=== PATIENT | female | born 1990 | race African-American/Black ===

== ENCOUNTER 2016-09-10 17:25 | Emergency (ER) | payer MEDICAID ==
[~2016-09-10] VITALS: Ht 157.5 cm; Wt 76.4 kg
[~2016-09-10 17:25] MED LIST: HYDR-3533 PO; ZOFR4TAB PO
[2016-09-10 17:27] VITALS: BP 157/85; PULSE 99; RESP 14; TEMP 98.1; O2SAT 100
[2016-09-10 18:45] LABS: AUTOMATED NEUTROPHIL # 5.3 TH/MM3 (1.8-7.7); BASOPHIL % 0.4 % (0.0-2.0); EOSINOPHIL # 0.1 TH/MM3 (0-0.4); EOSINOPHIL % 0.7 % (0.0-4.0); HEMATOCRIT 34.3 % (35.0-46.0); LYMPH % 32.9 % (9.0-44.0); MEAN CELL VOLUME 72.2 FL (80.0-100.0); MEAN CORPUSCULAR HGB CONC 30.4 % (32.0-36.0); MONO % 6.4 % (0.0-8.0); NEUT % 59.6 % (16.0-70.0); PLATELET COUNT 332 TH/MM3 (150-450); RED BLOOD COUNT 4.75 MIL/MM3 (4.00-5.30); RED CELL DISTRIBUTION WIDTH 21.4 % (11.6-17.2)
[2016-09-10 18:49] LABS: HEMO FLAGS AUTO DIFF
[2016-09-10 18:51] LABS: BLOOD, URINE NEG (NEG); COMMENT (UR) CULT NOT INDICATED; CULTURE IF INDICATED CULT NOT INDICATED; GLUCOSE,URINE NEG (NEG); KETONE, URINE NEG (NEG); MUCUS URINE FEW /lpf (OCC); NITRITE,URINE NEG (NEG); PH, URINE 6.5 (5.0-8.5); SQUAMOUS EPITHELIAL CELL URINE 7 /hpf (0-5); URINE COLOR YELLOW (YELLW/STRAW)
[2016-09-10 19:04] LABS: ANION GAP 6 MEQ/L (5-15); AST (GOT) 17 U/L (15-37); BICARBONATE 27.9 MEQ/L (21.0-32.0); BLOOD UREA NITROGEN 6 MG/DL (7-18); CHLORIDE 102 MEQ/L (98-107); GLOMERULAR FILTRATION RATE 119 ML/MIN (>89); POTASSIUM 3.8 MEQ/L (3.5-5.1); SODIUM (NA) 136 MEQ/L (136-145)
[2016-09-10 19:08] LABS: ALKALINE PHOSPHATASE 81 U/L (45-117); ALT (GPT) 20 U/L (10-53); TOTAL BILIRUBIN ADULT 0.2 MG/DL (0.2-1.0)
[2016-09-10 20:51] LABS: PLATELET ESTIMATE SMEAR NORMAL (NORMAL); PLATELET MORPHOLOGY NORMAL (NORMAL); SCAN/DIFF AUTO DIFF CONFIRMED
== END 2016-09-10 21:06 | disposition left against medical advice (07) ==
LOC: NED 17:25
DX: R53.1 Weakness (principal)
CPT/HCPCS: 80053; 81001; 85025; 86850; 86900; 86901; 99281

== ENCOUNTER 2016-09-11 14:40 | Emergency (ER) | payer MEDICAID ==
[~2016-09-11] VITALS: Ht 157.5 cm; Wt 75.0 kg
[2016-09-11 14:41] VITALS: BP 169/84; PULSE 104; RESP 12; TEMP 97.8; O2SAT 100
== END 2016-09-11 18:17 | disposition left against medical advice (07) ==
LOC: NED 14:40
DX: R51 Headache (principal)
CPT/HCPCS: 99281

== ENCOUNTER 2017-09-14 10:26 | Emergency (ER) | payer MEDICAID ==
[2017-09-14 10:31] VITALS: BP 163/99; PULSE 115; RESP 12; TEMP 98; O2SAT 99
--- NOTE | 2017-09-14 11:19 | PD ---
HPI Chief Complaint: Fall Time Seen by Provider: 11:09 Travel History International Travel<30 days: No Contact w/Intl Traveler<30days: No Traveled to known affect area: No History of Present Illness HPI The patient was seen and examined in the presence of the nurse. This patient complains of injuries sustained when she tripped and fell down stairs. She estimates 5 stairs. This happened 2 days ago. She injured her left rib cage and her right hand. He denies head or neck injury or pain. She is ambulatory. Severity is moderate. PFSH Past Medical History Anemia: Yes Cancer: No Cardiovascular Problems: No Diabetes: No Diminished Hearing: No Endocrine: No Gastrointestinal Disorders: No Genitourinary: No Immune Disorder: No Musculoskeletal: No Neurologic: No Psychiatric: No Respiratory: No Immunizations Current: Yes Tetanus Vaccination: > 5 Years Influenza Vaccination: No ?: Not LMP: July : 1 Para: 1 Past Surgical History Section: Yes Neurologic Surgery: Yes (scoliosis (osorio rods)) Other Surgery: Yes Social History Alcohol Use: No Tobacco Use: No Substance Use: No Allergies-Medications (Allergen,Severity, Reaction): Coded Allergies: No Known Allergies (Verified Adverse Reaction, Unknown, 09/14/17) Reported Meds & Prescriptions Reported Meds & Active Scripts Active No Active Prescriptions or Reported Medications Review of Systems General / Constitutional: No: Fever HENT: No: Headaches Cardiovascular: Positive: Chest Pain or Discomfort Respiratory: No: Cough Musculoskeletal: Positive: Pain Physical Exam Narrative GENERAL: Well-nourished, well-developed patient in no apparent distress. SKIN: Focused skin assessment reveals no rash and nodules. Skin is Warm and dry. HEAD: Atraumatic. Normocephalic. EYES: Pupils equal and round. No scleral icterus. No injection or drainage. ENT: No nasal bleeding or discharge. Mucous membranes pink and moist. NECK: Trachea midline. No JVD. No midline tenderness CARDIOVASCULAR: Regular rate and rhythm. No murmur appreciated. RESPIRATORY: No accessory muscle use. Clear to auscultation. Breath sounds equal bilaterally. GASTROINTESTINAL: Abdomen soft, non-tender, nondistended. Hepatic and splenic margins not palpable. MUSCULOSKELETAL: No obvious deformities. No clubbing. No cyanosis. No edema. Minor abrasion over the third PIP joint. There is tenderness of fingers 3 and 4 of the right hand. She has left-sided rib tenderness without crepitus or paradoxical rib movement. NEUROLOGICAL: Awake and alert. No obvious cranial nerve deficits. Motor grossly within normal limits. Normal speech. PSYCHIATRIC: Appropriate mood and affect; insight and judgment normal. Data Data Last Documented VS Vital Signs Date Time Temp Pulse Resp B/P (MAP) Pulse Ox O2 Delivery O2 Flow Rate FiO2 09/14/17 10:31 98.0 115 12 163/99 (120) 99 Orders Orders Chest, Single Ap (09/14/17 ) Hand, Complete ([id number]) (09/14/17 ) MDM Medical Decision Making Medical Screen Exam Complete: Yes Emergency Medical Condition: Yes Medical Record Reviewed: Yes Differential Diagnosis Rib fracture, contusion, hand fracture Narrative Course I have reviewed the patient's electronic medical record. I reviewed her right hand x-rays which show soft tissue swelling but no fracture I reviewed her chest x-ray which is negative Supportive care discussed. No fracture seen Diagnosis Primary Impression: Contusion of right hand, initial encounter Additional Impression: Contusion of rib on right side Qualified Codes: S20.211A - Contusion of right front wall of thorax, initial encounter Additional Instructions: The patient was advised to follow up with their physician and return if they worsen. Med/Other Pt SpecificInfo: Other Scripts No Active Prescriptions or Reported Meds Disposition: 01 DISCHARGE HOME Condition: Stable Chi Hannah MD Sep 14, 2017 11:19
--- NOTE | 2017-09-14 12:06 | RADRPT ---
EXAM DATE/TIME: 09/14/2017 11:24 [facility] COMPARISON: No previous studies available for comparison. INDICATIONS : Right sided rib pain after fall downstairs today. MEDICAL HISTORY : None. SURGICAL HISTORY : Thoracic fusion. ENCOUNTER: Initial ACUITY: 1 day PAIN SCORE: 5/10 LOCATION: Bilateral chest FINDINGS: Extensive hardware is noted throughout the thoracic spine. The heart is normal. The pulmonary vascula r pattern is normal. The lungs are clear. CONCLUSION: No acute cardiopulmonary disease. Isai Brar MD on September 14, 2017 at 12:03 Board Certified Radiologist. This report was verified electronically.
--- NOTE | 2017-09-14 12:08 | RADRPT ---
EXAM DATE/TIME: 09/14/2017 11:27 [facility] COMPARISON: No previous studies available for comparison. INDICATIONS : Right hand pain after fall downstairs. Pain near 3rd and 4th MPJ. MEDICAL HISTORY : None. SURGICAL HISTORY : Thoracic fusion. ENCOUNTER: Initial ACUITY: 1 day PAIN SCORE: 5/10 LOCATION: Right hand. FINDINGS: There is soft tissue swelling along the dorsum of the right hand near the metacarpophalangeal joints. There is no acute fracture or dislocation. CONCLUSION: No acute fracture or dislocation. Soft tissue swelling along the dorsum of the right hand near the me tacarpophalangeal joints. Isia Brar MD on September 14, 2017 at 12:04 Board Certified Radiologist. This report was verified electronically.
[2017-09-14 13:29] VITALS: BP 140/90
== END 2017-09-14 13:30 | disposition home or self-care (01) ==
LOC: NEPD 10:26
DX: S60.221A Contusion of right hand, initial encounter (principal); S20.211A Contusion of right front wall of thorax, initial encounter; D64.9 Anemia, unspecified; W10.9XXA Fall (on) (from) unspecified stairs and steps, initial encounter
CPT/HCPCS: 71045; 73130; 99284

== ENCOUNTER 2017-10-27 08:20 | Emergency (ER) | payer MEDICAID ==
[~2017-10-27] VITALS: Ht 157.5 cm; Wt 75.0 kg
[2017-10-27 08:24] VITALS: BP 145/109; PULSE 83; RESP 16; O2SAT 100
[2017-10-27] MEDS ORDERED: SODIUM CHLOR 0.9% 1000 ML INJ 1,000 ML IV SCH (08:44)
[2017-10-27] MEDS ORDERED: ONDANSETRON HCL 4 MG/2 ML VIAL IVP ONE (08:45)
[2017-10-27] MEDS ORDERED: LIDOCAINE VISCOUS 2% SOLN 15 ML UDC PO ONE (08:45)
[2017-10-27] MEDS ORDERED: SODIUM CHLORIDE 0.9% FLUSH 10 ML FLUSH IV FLUSH PRN (08:45)
[2017-10-27] MEDS ORDERED: MORPHINE SULFATE 4 MG/ML INJ IV PUSH ONE (08:45)
[2017-10-27] MEDS ORDERED: ALUMINUM/MAGNESIUM/SIMETH 30 ML CUP PO ONE (08:45)
[2017-10-27 08:53] VITALS: BP 159/98; PULSE 77; RESP 18; TEMP 98; O2SAT 100
[2017-10-27 09:39] LABS: AUTOMATED NEUTROPHIL # 3.9 TH/MM3 (1.8-7.7); BASOPHIL % 0.4 % (0.0-2.0); EOSINOPHIL # 0.1 TH/MM3 (0-0.4); EOSINOPHIL % 1.4 % (0.0-4.0); HEMATOCRIT 32.4 % (35.0-46.0); HEMOGLOBIN 10.4 GM/DL (11.6-15.3); LYMPH % 31.3 % (9.0-44.0); MEAN CELL VOLUME 82.7 FL (80.0-100.0); MEAN CORPUSCULAR HEMOGLOBIN 26.6 PG (27.0-34.0); MEAN CORPUSCULAR HGB CONC 32.2 % (32.0-36.0); MEAN PLATELET VOLUME 6.7 FL (7.0-11.0); MONO % 6.7 % (0.0-8.0); MONOCYTE # 0.4 TH/MM3 (0-0.9); NEUT % 60.2 % (16.0-70.0); PLATELET COUNT 378 TH/MM3 (150-450); RED BLOOD COUNT 3.91 MIL/MM3 (4.00-5.30); RED CELL DISTRIBUTION WIDTH 17.6 % (11.6-17.2); WHITE BLOOD COUNT 6.5 TH/MM3 (4.0-11.0)
[2017-10-27 09:55] LABS: ALBUMIN 3.4 GM/DL (3.4-5.0); AST (GOT) 14 U/L (15-37); BICARBONATE 27.3 MEQ/L (21.0-32.0); BLOOD UREA NITROGEN 13 MG/DL (7-18); CALCIUM 8.8 MG/DL (8.5-10.1); CHLORIDE 109 MEQ/L (98-107); CREATININE 0.76 MG/DL (0.50-1.00); GLOMERULAR FILTRATION RATE 112 ML/MIN (>89); GLUCOSE,RANDOM 124 MG/DL (74-106); SODIUM (NA) 141 MEQ/L (136-145)
[2017-10-27 09:56] LABS: ALT (GPT) 12 U/L (10-53)
[2017-10-27 09:58] LABS: ALKALINE PHOSPHATASE 93 U/L (45-117); TOTAL BILIRUBIN ADULT 0.1 MG/DL (0.2-1.0); TOTAL PROTEIN 7.9 GM/DL (6.4-8.2)
--- NOTE | 2017-10-27 10:13 | RADRPT ---
EXAM DATE/TIME: 10/27/2017 09:10 [facility] COMPARISON: US ABDOMEN - GALLBLADDER, May 14, 2016, 11:56. INDICATIONS : Right upper quadrant pain. MEDICAL HISTORY : Scoliosis. Anemia. SURGICAL HISTORY : section. Dior rods for scoliosis. Blood transfusions. ENCOUNTER: Initial ACUITY: 1 day PAIN SCORE: 10/10 LOCATION: Right upper quadrant MEASUREMENTS: LIVER: 18.7 cm length COMMON DUCT: 3 mm RIGHT KIDNEY: 10.8 x 5.7 x 4.2 cm FINDINGS: LIVER: Normal echotexture without focal lesion or ductal dilatation. COMMON DUCT: No intraluminal mass or stone visualized. GALLBLADDER: Multiple echogenic and shadowing stones measuring up to 1.5 cm is seen in the fundus. These appeared to move under real-time observation. The appearance of the gallstones appears larger when compared to prior ultrasound in 2016. PANCREAS: The visualized portions are within normal limits. RIGHT KIDNEY: No evidence of hydronephrosis, stone, or mass. CONCLUSION: Multiple mobile moderate size gallstones. Normal dimension common hepatic duct. Alonzo Pickett MD on October 27, 2017 at 10:09 Board Certified Radiologist. This report was verified electronically.
[2017-10-27] MEDS ORDERED: PERC5TAB12 PO (10:22)
[2017-10-27] MEDS ORDERED: IBUP-232 PO (10:22)
--- NOTE | 2017-10-27 10:22 | PD ---
HPI Chief Complaint: Abdominal Pain Time Seen by Provider: 08:44 Travel History International Travel<30 days: No Contact w/Intl Traveler<30days: No Traveled to known affect area: No History of Present Illness HPI 26-year-old female arrives complaining of pain in the right chest. She states she experiences pain like this after eating fattening foods which exacerbate gallbladder disease. She has no history of gallbladder stones. No vomiting or fever. Severity moderate. Onset sudden. Duration several hours. PFSH Past Medical History Anemia: Yes Cancer: No Cardiovascular Problems: No Diabetes: No Diminished Hearing: No Endocrine: No Gastrointestinal Disorders: No Genitourinary: No Immune Disorder: No Musculoskeletal: No Neurologic: No Psychiatric: No Respiratory: No Immunizations Current: Yes Tetanus Vaccination: Unknown Influenza Vaccination: No ?: Not LMP: 2 WEEKS AGO : 1 Para: 1 Past Surgical History Section: Yes Neurologic Surgery: Yes (scoliosis (osorio rods)) Other Surgery: Yes Social History Alcohol Use: No Tobacco Use: No Substance Use: No Allergies-Medications (Allergen,Severity, Reaction): Coded Allergies: No Known Allergies (Verified Adverse Reaction, Unknown, 10/27/17) Reported Meds & Prescriptions Reported Meds & Active Scripts Active Percocet (Oxycodone-Acetaminophen) 5-325 mg Tab 1-2 Tab PO Q6H PRN Ibuprofen 600 Mg Tab 600 Mg PO Q8HR PRN Review of Systems Except as stated in HPI: all other systems reviewed are Neg General / Constitutional: No: Fever Physical Exam Narrative GENERAL: 27-year-old female mild distress pleasant well-nourished well-developed Vital Signs Date Time Temp Pulse Resp B/P (MAP) Pulse Ox O2 Delivery O2 Flow Rate FiO2 10/27/17 08:53 98.0 77 18 159/98 (118) 100 Room Air 10/27/17 08:34 18 10/27/17 08:24 83 16 145/109 (121) 100 SKIN: Warm and dry. HEAD: Atraumatic. Normocephalic. EYES: Pupils equal and round. No scleral icterus. No injection or drainage. ENT: No nasal bleeding or discharge. Mucous membranes pink and moist. NECK: Trachea midline. No JVD. CARDIOVASCULAR: Regular rate and rhythm. RESPIRATORY: No accessory muscle use. Clear to auscultation. Breath sounds equal bilaterally. GASTROINTESTINAL: Soft. No rebound or guarding. MUSCULOSKELETAL: Extremities without clubbing, cyanosis, or edema. No obvious deformities. NEUROLOGICAL: Awake and alert. No obvious cranial nerve deficits. Motor grossly within normal limits. Five out of 5 muscle strength in the arms and legs. Normal speech. PSYCHIATRIC: Appropriate mood and affect; insight and judgment normal. Data Data Last Documented VS Vital Signs Date Time Temp Pulse Resp B/P (MAP) Pulse Ox O2 Delivery O2 Flow Rate FiO2 10/27/17 08:53 98.0 77 18 159/98 (118) 100 Room Air Orders Orders Complete Blood Count With Diff (10/27/17 08:44) Comprehensive Metabolic Panel (10/27/17 08:44) Lipase (10/27/17 08:44) Us Abdomen Gallbladder (10/27/17 ) Iv Access Insert/Monitor (10/27/17 08:44) Ecg Monitoring (10/27/17 08:44) Oximetry (10/27/17 08:44) Morphine Inj (Morphine Inj) (10/27/17 08:45) Ondansetron Inj (Zofran Inj) (10/27/17 08:45) Sodium Chlor 0.9% 1000 Ml Inj (Ns 1000 M (10/27/17 08:44) Sodium Chloride 0.9% Flush (Ns Flush) (10/27/17 08:45) Al-Mag Hy-Si 40-40-4 Mg/Ml Liq (Mag-Al P (10/27/17 08:45) Lidocaine 2% Viscous (Xylocaine 2% Visco (10/27/17 08:45) Ed Discharge Order (10/27/17 10:22) Labs Laboratory Tests Test 10/27/17 09:00 White Blood Count 6.5 TH/MM3 Red Blood Count 3.91 MIL/MM3 Hemoglobin 10.4 GM/DL Hematocrit 32.4 % Mean Corpuscular Volume 82.7 FL Mean Corpuscular Hemoglobin 26.6 PG Mean Corpuscular Hemoglobin Concent 32.2 % Red Cell Distribution Width 17.6 % Platelet Count 378 TH/MM3 Mean Platelet Volume 6.7 FL Neutrophils (%) (Auto) 60.2 % Lymphocytes (%) (Auto) 31.3 % Monocytes (%) (Auto) 6.7 % Eosinophils (%) (Auto) 1.4 % Basophils (%) (Auto) 0.4 % Neutrophils # (Auto) 3.9 TH/MM3 Lymphocytes # (Auto) 2.0 TH/MM3 Monocytes # (Auto) 0.4 TH/MM3 Eosinophils # (Auto) 0.1 TH/MM3 Basophils # (Auto) 0.0 TH/MM3 CBC Comment DIFF FINAL Differential Comment Blood Urea Nitrogen 13 MG/DL Creatinine 0.76 MG/DL Random Glucose 124 MG/DL Total Protein 7.9 GM/DL Albumin 3.4 GM/DL Calcium Level 8.8 MG/DL Alkaline Phosphatase 93 U/L Aspartate Amino Transf (AST/SGOT) 14 U/L Alanine Aminotransferase (ALT/SGPT) 12 U/L Total Bilirubin 0.1 MG/DL Sodium Level 141 MEQ/L Potassium Level 4.0 MEQ/L Chloride Level 109 MEQ/L Carbon Dioxide Level 27.3 MEQ/L Anion Gap 5 MEQ/L Estimat Glomerular Filtration Rate 112 ML/MIN Lipase 186 U/L MDM Medical Decision Making Medical Screen Exam Complete: Yes Emergency Medical Condition: Yes Medical Record Reviewed: Yes Differential Diagnosis Constipation, Gastritis, Acute Cholecystitis, Biliary Colic, Pancreatitis, [place] , Hepatitis, Bowel Obstruction, Cystitis, Mesenteric Ischemia, AAA, Appendicitis , Renal Stone/Hydronephrosis, GERD, perforated viscous Narrative Course CBC & BMP Diagram 10/27/17 09:00 Total Protein 7.9, Albumin 3.4, Calcium Level 8.8, Alkaline Phosphatase 93, Aspartate Amino Transf (AST/SGOT) 14 L, Alanine Aminotransferase (ALT/SGPT) 12, Total Bilirubin 0.1 L Lipase normal Right upper quadrant ultrasound shows mobile gallstones without gallbladder wall thickening pericholecystic fluid or dilatation of the common bile duct The patient is resting comfortably and feels better, is alert and in no distress. The patients results and examination findings were discussed. The repeat examination is unremarkable and benign. The history, exam, diagnostic testing, and current condition do not suggest any significant pathology to warrant further testing, continued ED treatment, admission, or surgical evaluation at this point. The vital signs have been stable. The patient does not have uncontrollable pain, intractable vomiting, or other significant symptoms. The patient's condition is stable and appropriate for discharge. The patient will pursue further outpatient evaluation with a primary care physician or other designated or consulting physician as indicated in the discharge instructions. The patient expressed understanding and was agreeable with this plan. Diagnosis Primary Impression: Biliary colic Referrals: Lawrence Ervin MD call for appointment Med/Other Pt SpecificInfo: Prescription(s) given Scripts Oxycodone-Acetaminophen (Percocet) 5-325 mg Tab 1-2 TAB PO Q6H Y for PAIN SCALE 6 TO 10, #10 TAB 0 Refills Prov: Rory Ansari MD 10/27/17 Ibuprofen (Ibuprofen) 600 Mg Tab 600 MG PO Q8HR Y for PAIN SCALE 6 TO 10, #20 TAB 0 Refills Prov: Rory Ansari MD 10/27/17 Disposition: 01 DISCHARGE HOME Condition: Stable Rory Ansari MD Oct 27, 2017 10:22
[2017-10-27 10:51] VITALS: BP 138/81
== END 2017-10-27 10:45 | disposition home or self-care (01) ==
LOC: NEPC 08:20
DX: K80.50 Calculus of bile duct without cholangitis or cholecystitis without obstruction (principal)
CPT/HCPCS: 76705; 80053; 83690; 85025; 96361; 96374; 96375; 99284; J2270; J2405; J7030

== ENCOUNTER 2018-02-04 06:38 | Emergency (ER) | payer MEDICAID, OTHER ==
[~2018-02-04 06:38] MED LIST changes: -HYDR-3533 PO; +IBUP-232 PO; +PERC5TAB12 PO; -ZOFR4TAB PO
[2018-02-04 06:39] VITALS: BP 148/96; PULSE 82; RESP 18; TEMP 98.2; O2SAT 99
[2018-02-04 06:51] VITALS: BP 138/87; PULSE 81; RESP 20; O2SAT 99
[2018-02-04] MEDS ORDERED: KETOROLAC TROMETHAMINE 60 MG/2 ML (IM) VIAL IM ONE (07:15)
--- NOTE | 2018-02-04 07:16 | PD ---
HPI Chief Complaint: Back/ Neck Pain or Injury Time Seen by Provider: 07:07 Travel History International Travel<30 days: No Contact w/Intl Traveler<30days: No Traveled to known affect area: No History of Present Illness HPI 27 y/o female presents with left-sided flank pain that has been present over the past day. She states it hurts worse if she twists or moves. She states it feels like a pulled muscle. She denies other associated symptoms with this including abdominal pain, nausea, vomiting, diarrhea, constipation, fever, trauma, cough, congestion or other concurrent complaints. Quality pain is sharp. Severity is moderate. She states with her history she gets frequent back pain like this but has not taken any medication yet. PFSH Past Medical History Anemia: Yes Cancer: No Cardiovascular Problems: No Diabetes: No Diminished Hearing: No Endocrine: No Gastrointestinal Disorders: No Genitourinary: No Immune Disorder: No Musculoskeletal: Yes (SCOLIOSIS) Neurologic: No Psychiatric: No Respiratory: No Immunizations Current: Yes ?: Unknown LMP: November and usually irregular : 1 Para: 1 Past Surgical History Section: Yes Neurologic Surgery: Yes (scoliosis (osorio rods)) Other Surgery: Yes Social History Alcohol Use: No Tobacco Use: No Substance Use: No Allergies-Medications (Allergen,Severity, Reaction): Coded Allergies: No Known Allergies (Verified Adverse Reaction, Unknown, 02/04/18) Reported Meds & Prescriptions Reported Meds & Active Scripts Active No Active Prescriptions or Reported Medications Review of Systems Except as stated in HPI: all other systems reviewed are Neg Physical Exam Narrative GENERAL: 27 y/o female in no apparent distress SKIN: Focused skin assessment warm/dry. HEAD: Atraumatic. Normocephalic. EYES: Pupils equal and round. No scleral icterus. No injection or drainage. ENT: No nasal bleeding or discharge. Mucous membranes pink and moist. NECK: Trachea midline. No JVD. No meningeal signs CARDIOVASCULAR: Regular rate and rhythm. No murmur appreciated. RESPIRATORY: No accessory muscle use. Clear to auscultation. Breath sounds equal bilaterally. GASTROINTESTINAL: Abdomen soft, non-tender, nondistended. MUSCULOSKELETAL: No obvious deformities. No clubbing. No cyanosis. No edema. Point tender to left mid back above CVA area, no CVA tenderness, no midline pain across spine NEUROLOGICAL: Awake and alert. No obvious cranial nerve deficits. Motor grossly within normal limits. Normal speech. PSYCHIATRIC: Appropriate mood and affect; insight and judgment normal. Data Data Last Documented VS Vital Signs Date Time Temp Pulse Resp B/P (MAP) Pulse Ox O2 Delivery O2 Flow Rate FiO2 02/04/18 08:08 02/04/18 06:51 81 20 99 02/04/18 06:39 98.2 Orders Orders Urinalysis - C+S If Indicated (02/04/18 06:56) Ed Urine Pregnancytest Poc (02/04/18 07:06) Ketorolac Inj (Toradol Inj) (02/04/18 07:15) Urine Culture (02/04/18 07:07) Ed Discharge Order (02/04/18 07:47) Labs Laboratory Tests Test 02/04/18 07:07 Urine Color LIGHT-YELLOW Urine Turbidity CLEAR Urine pH 6.0 Urine Specific [place] 1.009 Urine Protein NEG mg/dL Urine Glucose (UA) NEG mg/dL Urine Ketones NEG mg/dL Urine Occult Blood NEG Urine Nitrite NEG Urine Bilirubin NEG Urine Urobilinogen LESS THAN 2.0 MG/DL Urine Leukocyte Esterase NEG Urine RBC LESS THAN 1 /hpf Urine WBC 2 /hpf Urine Squamous Epithelial Cells 4 /hpf Urine Bacteria MOD /hpf Urine Mucus FEW /lpf Microscopic Urinalysis Comment CULTURE INDICATED MDM Medical Decision Making Medical Screen Exam Complete: Yes Emergency Medical Condition: Yes Medical Record Reviewed: Yes (Past history confirmed) Interpretation(s) Beta is negative UA likely contaminated given no symptoms we will follow culture and does not treat Differential Diagnosis Musculoskeletal, UTI, , cyst, stone Narrative Course Will check urinalysis and test and dose with Toradol and reevaluate. Patient agrees to limited workup without imaging given symptoms. Patient denies any new complaints and states that they are feeling better. Patient happy with care, all questions answered. Patient knows that follow up is incumbent on them and to return to the emergency room immediately if new or worsening symptoms develop. Patient given strict return precautions, vitals reviewed and are normal, agrees to further workup as an outpatient. Diagnosis Primary Impression: Back pain Qualified Codes: M54.9 - Dorsalgia, unspecified Patient Instructions: General Instructions Additional Instructions: return as needed, tylenol as needed, follow with primary this week Med/Other Pt SpecificInfo: No Change to Meds Scripts No Active Prescriptions or Reported Meds Disposition: DISCHARGE HOME Condition: Stable Francine Chen MD February 04, 2018 07:16
[2018-02-04 07:33] LABS: BACTERIA, URINE MOD /hpf; BILIRUBIN, URINE NEG (NEG); BLOOD, URINE NEG (NEG); GLUCOSE,URINE NEG (NEG); KETONE, URINE NEG (NEG); MUCUS URINE FEW /lpf (OCC); NITRITE,URINE NEG (NEG); SQUAMOUS EPITHELIAL CELL URINE 4 /hpf (0-5); URINE COLOR LIGHT-YELLOW (YELLW/STRAW); URINE LEUKOCYTE ESTERASE NEG (NEG)
== END 2018-02-04 08:10 | disposition home or self-care (01) ==
LOC: NEPE 06:38
DX: M54.9 Dorsalgia, unspecified (principal)
CPT/HCPCS: 81001; 84703; 87086; 96372; 99283; J1885